=== PATIENT | female | born 2000 | race African-American/Black ===

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

== ENCOUNTER 2023-10-19 01:45 | Emergency (ER) | payer MEDICAID ==
[~2023-10-19] VITALS: Ht 162.6 cm; Wt 113.4 kg
[~2023-10-19 01:45] MED LIST changes: -METF-1022 PO; +METF-1253 PO
[2023-10-19 02:15] VITALS: BP 155/81; PULSE 99; RESP 18; TEMP 97.8; O2SAT 99
[2023-10-19 02:58] LABS: BASOPHILS % (AUTO) 0.6 % (0.0-2.0); EOSINOPHILS # (AUTO) 0.1 K/uL (0-0.4); HEMATOCRIT 26.2 % (36-48); HEMOGLOBIN 8.8 g/dL (12.0-16.0); LYMPHOCYTES # (AUTO) 2.2 K/uL (2.5-16.5); LYMPHOCYTES % (AUTO) 33.1 % (20.5-51.1); MEAN CORPUSCULAR HEMOGLOBIN 25 pg (27-31); MEAN CORPUSCULAR HGB CONC 34 g/dL (33-37); MONOCYTES # (AUTO) 0.9 K/uL (0.8-1.0); MONOCYTES % (AUTO) 13.1 % (1.7-9.3); NEUTROPHILS # (AUTO) 3.4 K/uL (1.8-7.7); NEUTROPHILS % (AUTO) 52.2 % (42.2-75.2); PLATELET COUNT (AUTO) 378 K/uL (140-450); RED BLOOD CELL COUNT(AUTO) 3.45 MIL/uL (4.20-5.40); RED CELL DISTRIBUTION WIDTH 13.4 % (11.6-13.7); WHITE BLOOD COUNT (AUTO) 6.6 K/uL (4.8-10.8)
[2023-10-19 03:01] LABS: APPEARANCE,URINE CLEAR (CLEAR); BILIRUBIN,URINE NEGATIVE (NEGATIVE); BLOOD, URINE 2+ (NEGATIVE); COLOR,URINE YELLOW (YELLOW); LEUKOCYTE ESTERASE ,URINE NEGATIVE (NEGATIVE); NITRITE, URINE NEGATIVE (NEGATIVE); PROTEIN,URINE 3+ (NEGATIVE); UGLUCOSE NEGATIVE (NEGATIVE); UROBILINOGEN,URINE 0.2 EU/dL (0.2 - 1)
[2023-10-19 03:05] LABS: BACTERIA,URINE 10-30 (MOD) /HPF (None Seen); MUCUS,URINE 1+ /LPF (None Seen); SQUAMOUS EPITHELIAL CELL,UR 4-10 (MOD) /LPF (0-3 (FEW)); WBC,URINE 0-5 /HPF (0-5)
[2023-10-19 03:18] LABS: AMPHETAMINE, URINE NEGATIVE ng/ml (NEG <=1000); BARBITURATE, URINE NEGATIVE ng/ml (NEG <=200); BENZODIAZEPINE, URINE NEGATIVE ng/mL (NEG <=200); CANNABINOID, URINE POSITIVE ng/mL (NEG <=50); COCAINE, URINE NEGATIVE ng/mL (NEG <=300); OPIATE, URINE NEGATIVE ng/mL (NEG <=2000); PHENCYCLIDINE SCREEN,URINE NEGATIVE ng/mL (NEG <=25)
[2023-10-19] MEDS: diphenhydrAMINE 50 MG/ML VIAL IVP ONE (03:19)
[2023-10-19] MEDS: METOCLOPRAMIDE 10 MG/2 ML INJ VIAL IVP ONE (03:19)
[2023-10-19 03:28] LABS: ALBUMIN 2.3 g/dL (3.4-5.0); ANION GAP 9.7 (8-16); CALCIUM 8.9 mg/dL (8.5-10.1); POTASSIUM 4.7 mmol/L (3.5-5.1); TOTAL BILIRUBIN 0.1 mg/dL (0.0-1.0); TOTAL PROTEIN, SERUM 7.8 g/dL (6.4-8.2)
[2023-10-19] MEDS: NACL 0.9% 1,000 ML IV ONE (03:41)
[2023-10-19] MEDS: SUMAtriptan succinate 6 MG/0.5 ML VIAL SUBQ ONE (03:41)
[2023-10-19] MEDS: KETOROLAC 30 MG/ML VIAL IVP ONE (03:52)
[2023-10-19] MEDS: DEXAMETHASONE 10 MG/ML VIAL IVP ONE (03:53)
[2023-10-19] MEDS ORDERED: ACET-9496 PO (04:52)
[2023-10-19] MEDS ORDERED: METO-485 PO (04:52)
[2023-10-19] MEDS ORDERED: IMI50 PO (04:52)
[2023-10-19] MEDS ORDERED: NAPR-54 PO (04:52)
[2023-10-19] MEDS ORDERED: LISI5TAB18 PO (04:53)
[2023-10-19 05:57] VITALS: BP 183/77; PULSE 98; RESP 16; O2SAT 100
== END 2023-10-19 05:57 | disposition home or self-care (01) ==
LOC: MED 01:45
DX: G43.109 Migraine with aura, not intractable, without status migrainosus (principal); I10 Essential (primary) hypertension; E11.9 Type 2 diabetes mellitus without complications; D53.9 Nutritional anemia, unspecified; E78.00 Pure hypercholesterolemia, unspecified; Z86.39 Personal history of other endocrine, nutritional and metabolic disease; Z98.890 Other specified postprocedural states; Z79.899 Other long term (current) drug therapy
CPT/HCPCS: 36415; 80053; 80305; 81001; 81025; 85025; 87086; 96361; 96372; 96374; 96375; 99284; J1100; J1200; J1885; J2765; J3030; J7030

== ENCOUNTER 2023-10-23 15:46 | Emergency (ER) | payer MEDICAID ==
[~2023-10-23] VITALS: Ht 162.6 cm; Wt 113.4 kg
[2023-10-23 15:46] VITALS: BP 150/88; PULSE 102; RESP 20; TEMP 98.1; O2SAT 98
[~2023-10-23 15:46] MED LIST changes: +ACET-9496 PO; +IMI50 PO; +LISI5TAB18 PO; +METO-485 PO; +NAPR-54 PO
[2023-10-24] MEDS ORDERED: INSU100S10 SC (18:05)
[2023-10-24] MEDS ORDERED: LISI5TAB18 PO (18:05)
== END 2023-10-23 16:03 | disposition left against medical advice (07) ==
LOC: MED 15:46
DX: R51.9 Headache, unspecified (principal); H57.10 Ocular pain, unspecified eye; Z53.21 Procedure and treatment not carried out due to patient leaving prior to being seen by health care provider
CPT/HCPCS: 99281

== ENCOUNTER 2023-10-24 14:25 | Emergency (ER) | payer MEDICAID ==
[~2023-10-24] VITALS: Ht 162.6 cm; Wt 113.4 kg
[2023-10-24 14:37] VITALS: BP 115/85; PULSE 109; RESP 18; TEMP 97.1; O2SAT 99
[2023-10-24] MEDS ORDERED: TOMOMETER 1 DEV DEV MC ONE (16:08)
[2023-10-24] MEDS: NACL 0.9% 1,000 ML IV ONE (16:39)
[2023-10-24 16:42] LABS: BASOPHILS % (AUTO) 0.5 % (0.0-2.0); EOSINOPHILS # (AUTO) 0.1 K/uL (0-0.4); EOSINOPHILS % (AUTO) 0.9 % (0.0-4.0); HEMOGLOBIN 10.1 g/dL (12.0-16.0); LYMPHOCYTES # (AUTO) 3.3 K/uL (2.5-16.5); LYMPHOCYTES % (AUTO) 32.4 % (20.5-51.1); MEAN CORPUSCULAR HEMOGLOBIN 25 pg (27-31); MEAN CORPUSCULAR HGB CONC 34 g/dL (33-37); MEAN CORPUSCULAR VOLUME 74.4 fL (80-94); MONOCYTES # (AUTO) 0.8 K/uL (0.8-1.0); MONOCYTES % (AUTO) 7.8 % (1.7-9.3); NEUTROPHILS # (AUTO) 5.9 K/uL (1.8-7.7); NEUTROPHILS % (AUTO) 58.4 % (42.2-75.2); PLATELET COUNT (AUTO) 490 K/uL (140-450); RED BLOOD CELL COUNT(AUTO) 4.04 MIL/uL (4.20-5.40); RED CELL DISTRIBUTION WIDTH 13.9 % (11.6-13.7); WHITE BLOOD COUNT (AUTO) 10.1 K/uL (4.8-10.8)
[2023-10-24 17:03] LABS: ANION GAP 11.4 (8-16); CALCIUM 9.3 mg/dL (8.5-10.1); CARBON DIOXIDE 26.3 mmol/L (21-32); CREATININE 1.1 mg/dL (0.6-1.3); POTASSIUM 4.7 mmol/L (3.5-5.1)
[2023-10-24] MEDS ORDERED: diphenhydrAMINE 50 MG/ML VIAL ONE (17:03)
[2023-10-24] MEDS ORDERED: KETOROLAC 30 MG/ML VIAL ONE (17:03)
[2023-10-24] MEDS ORDERED: METOCLOPRAMIDE 10 MG/2 ML INJ VIAL ONE (17:04)
[2023-10-24] MEDS: diphenhydrAMINE 50 MG/ML VIAL IVP ONE (17:11)
[2023-10-24] MEDS: KETOROLAC 30 MG/ML VIAL IVP ONE (17:12)
[2023-10-24] MEDS: METOCLOPRAMIDE 10 MG/2 ML INJ VIAL IVP ONE (17:13)
[2023-10-24] MEDS ORDERED: LISI5TAB18 PO (18:05)
[2023-10-24] MEDS ORDERED: INSU100S10 SC (18:05)
== END 2023-10-24 19:54 | disposition home or self-care (01) ==
LOC: MED 14:25
DX: H35.61 Retinal hemorrhage, right eye (principal); R51.9 Headache, unspecified; E03.9 Hypothyroidism, unspecified; E11.9 Type 2 diabetes mellitus without complications; I11.9 Hypertensive heart disease without heart failure; Z79.4 Long term (current) use of insulin; Z79.899 Other long term (current) drug therapy
CPT/HCPCS: 36415; 80048; 85025; 96361; 96374; 96375; 99284; J1200; J1885; J2765; J7030

== ENCOUNTER 2023-11-01 17:09 | Emergency (ER) | payer MEDICAID ==
[~2023-11-01] VITALS: Ht 165.1 cm; Wt 113.4 kg
[~2023-11-01 17:09] MED LIST changes: +INSU100S10 SC
[2023-11-01 17:18] VITALS: BP 139/95; PULSE 105; RESP 20; TEMP 98.1; O2SAT 100
[2023-11-01 17:36] VITALS: BP 135/88; PULSE 98; RESP 20; TEMP 98.1; O2SAT 100
[2023-11-01] MEDS: TETRACAINE HCL/PF 0.5% OPTH 4 ML BTL OP ONE (17:36)
[2023-11-01] MEDS: ONDANSETRON 4 MG ODT PO ONE (18:12)
[2023-11-01] MEDS: FLUORESCEIN OPTH STRIP 1 MG OP ONE (18:13)
[2023-11-01] MEDS: HYDROcodone/APAP 10/325 MG 1 TAB TAB PO ONE (18:13)
[2023-11-01] MEDS ORDERED: ACET-8905 PO (19:09)
== END 2023-11-01 19:19 | disposition home or self-care (01) ==
LOC: MED 17:09
DX: H57.11 Ocular pain, right eye (principal); E11.9 Type 2 diabetes mellitus without complications; I10 Essential (primary) hypertension; Z86.39 Personal history of other endocrine, nutritional and metabolic disease; E78.5 Hyperlipidemia, unspecified; Z79.899 Other long term (current) drug therapy; Z79.4 Long term (current) use of insulin
CPT/HCPCS: 99284; Q0162

== ENCOUNTER 2024-02-20 11:49 | Emergency (ER) | payer MEDICAID, OTHER ==
[~2024-02-20] VITALS: Ht 162.6 cm; Wt 114.0 kg
[~2024-02-20 11:49] MED LIST changes: +ACET-8905 PO; +NAPR-337 PO; -NAPR-54 PO
[2024-02-20 11:56] VITALS: BP 158/99; PULSE 104; RESP 18; TEMP 98.1; O2SAT 99
[2024-02-20] MEDS: ONDANSETRON 4 MG/2 ML VIAL IVP ONE (12:53)
[2024-02-20] MEDS: FAMOTIDINE 20 MG/2 ML VIAL IVP ONE (12:54)
[2024-02-20] MEDS: NACL 0.9% 1,000 ML IV SCH (12:56)
[2024-02-20 12:57] LABS: BASOPHILS % (AUTO) 0.2 % (0.0-2.0); EOSINOPHILS % (AUTO) 0.2 % (0.0-4.0); HEMATOCRIT 32.4 % (36-48); HEMOGLOBIN 10.6 g/dL (12.0-16.0); LYMPHOCYTES # (AUTO) 2.4 K/uL (2.5-16.5); MEAN CORPUSCULAR HEMOGLOBIN 26 pg (27-31); MEAN CORPUSCULAR HGB CONC 33 g/dL (33-37); MEAN CORPUSCULAR VOLUME 79.1 fL (80-94); MONOCYTES # (AUTO) 1.1 K/uL (0.8-1.0); MONOCYTES % (AUTO) 8.6 % (1.7-9.3); NEUTROPHILS # (AUTO) 9.7 K/uL (1.8-7.7); PLATELET COUNT (AUTO) 390 K/uL (140-450); RED CELL DISTRIBUTION WIDTH 17.3 % (11.6-13.7); WHITE BLOOD COUNT (AUTO) 13.4 K/uL (4.8-10.8)
[2024-02-20 13:00] VITALS: O2SAT 99
[2024-02-20 13:05] LABS: CALCIUM 9.2 mg/dL (8.5-10.1); CARBON DIOXIDE 25.5 mmol/L (21-32); CREATININE 1.5 mg/dL (0.6-1.3); POTASSIUM 4.5 mmol/L (3.5-5.1)
[2024-02-20 13:12] LABS: ALBUMIN 2.9 g/dL (3.4-5.0); BILIRUBIN,DIRECT 0.1 mg/dL (0.0-0.3); TOTAL BILIRUBIN 0.2 mg/dL (0.0-1.0); TOTAL PROTEIN, SERUM 7.6 g/dL (6.4-8.2)
[2024-02-20 14:12] LABS: APPEARANCE,URINE SL CLOUDY (CLEAR); BILIRUBIN,URINE NEGATIVE (NEGATIVE); BLOOD, URINE 1+ (NEGATIVE); COLOR,URINE YELLOW (YELLOW); LEUKOCYTE ESTERASE ,URINE TRACE (NEGATIVE); NITRITE, URINE NEGATIVE (NEGATIVE); PROTEIN,URINE 3+ (NEGATIVE); UGLUCOSE NEGATIVE (NEGATIVE); UROBILINOGEN,URINE 0.2 EU/dL (0.2 - 1)
[2024-02-20] MEDS ORDERED: METO-485 PO (14:12)
[2024-02-20 14:28] LABS: BACTERIA,URINE 10-30 (MOD) /HPF (None Seen); MUCUS,URINE 1+ /LPF (None Seen); SQUAMOUS EPITHELIAL CELL,UR 4-10 (MOD) /LPF (0-3 (FEW)); WBC,URINE 0-5 /HPF (0-5)
== END 2024-02-20 14:20 | disposition home or self-care (01) ==
LOC: MED 11:49
DX: K29.70 Gastritis, unspecified, without bleeding (principal); E11.9 Type 2 diabetes mellitus without complications; I10 Essential (primary) hypertension; E78.5 Hyperlipidemia, unspecified; F12.90 Cannabis use, unspecified, uncomplicated; Z98.890 Other specified postprocedural states; Z79.84 Long term (current) use of oral hypoglycemic drugs; Z79.1 Long term (current) use of non-steroidal anti-inflammatories (NSAID); Z79.4 Long term (current) use of insulin; Z79.899 Other long term (current) drug therapy
CPT/HCPCS: 36415; 76705; 80048; 80076; 81001; 81025; 82948; 83690; 85025; 87086; 96374; 96375; 99285; J2405; J3490; J7030; Q0092

== ENCOUNTER 2024-02-27 10:05 | Emergency (ER) | payer OTHER ==
[~2024-02-27] VITALS: Ht 165.1 cm; Wt 113.4 kg
[2024-02-27 10:10] VITALS: BP 165/96; PULSE 111; RESP 18; TEMP 97; O2SAT 100
[2024-02-27 11:01] VITALS: BP 128/92; PULSE 89; RESP 18; TEMP 97; O2SAT 100
[2024-02-27] MEDS: NACL 0.9% 1,000 ML IV ONE (11:11)
[2024-02-27] MEDS ORDERED: DICYCLOMINE HCL LIQUID 10 MG/5 ML UDC ONE (11:13)
[2024-02-27] MEDS ORDERED: ALUMINUM HYD/MAG/SIMETHICONE 30 ML UDC ONE (11:13)
[2024-02-27 11:15] LABS: BASOPHILS % (AUTO) 0.4 % (0.0-2.0); EOSINOPHILS % (AUTO) 0.3 % (0.0-4.0); HEMATOCRIT 30.9 % (36-48); LYMPHOCYTES # (AUTO) 2.6 K/uL (2.5-16.5); LYMPHOCYTES % (AUTO) 23.2 % (20.5-51.1); MEAN CORPUSCULAR HEMOGLOBIN 26 pg (27-31); MEAN CORPUSCULAR HGB CONC 32 g/dL (33-37); MEAN CORPUSCULAR VOLUME 79.6 fL (80-94); MONOCYTES # (AUTO) 0.9 K/uL (0.8-1.0); MONOCYTES % (AUTO) 7.8 % (1.7-9.3); NEUTROPHILS # (AUTO) 7.7 K/uL (1.8-7.7); NEUTROPHILS % (AUTO) 68.3 % (42.2-75.2); PLATELET COUNT (AUTO) 404 K/uL (140-450); RED BLOOD CELL COUNT(AUTO) 3.88 MIL/uL (4.20-5.40); RED CELL DISTRIBUTION WIDTH 16.1 % (11.6-13.7); WHITE BLOOD COUNT (AUTO) 11.3 K/uL (4.8-10.8)
[2024-02-27] MEDS: METOCLOPRAMIDE 10 MG/2 ML INJ VIAL IVP ONE (11:17)
[2024-02-27] MEDS: HALOPERIDOL IM 5 MG/ML VIAL IM ONE (11:21)
[2024-02-27] MEDS: DICYCLOMINE HCL LIQUID 20 MG, ALUMINUM HYD/MAG/SIMETHICONE 30 ML, LIDOCAINE VISCOUS 2% ... PO ONE (11:21)
[2024-02-27 12:02] LABS: ANION GAP 11.3 (8-16); CALCIUM 9.3 mg/dL (8.5-10.1); CARBON DIOXIDE 26.4 mmol/L (21-32); CREATININE 1.1 mg/dL (0.6-1.3); POTASSIUM 4.7 mmol/L (3.5-5.1)
[2024-02-27 12:08] LABS: ALBUMIN 2.8 g/dL (3.4-5.0); BILIRUBIN,DIRECT 0.1 mg/dL (0.0-0.3); TOTAL BILIRUBIN 0.3 mg/dL (0.0-1.0); TOTAL PROTEIN, SERUM 7.4 g/dL (6.4-8.2)
[2024-02-27] MEDS ORDERED: METO10TA11 PO (12:35)
== END 2024-02-27 12:51 | disposition home or self-care (01) ==
LOC: MED 10:05
DX: R11.10 Vomiting, unspecified (principal); R10.9 Unspecified abdominal pain; E11.9 Type 2 diabetes mellitus without complications; E78.5 Hyperlipidemia, unspecified; I10 Essential (primary) hypertension; F12.90 Cannabis use, unspecified, uncomplicated; Z98.890 Other specified postprocedural states; Z79.1 Long term (current) use of non-steroidal anti-inflammatories (NSAID); Z79.4 Long term (current) use of insulin; Z79.84 Long term (current) use of oral hypoglycemic drugs; Z79.899 Other long term (current) drug therapy; Z91.040 Latex allergy status
CPT/HCPCS: 36415; 80048; 80076; 81025; 82948; 83690; 84703; 85025; 96361; 96372; 96374; 99284; J1630; J2765; J7030

== ENCOUNTER 2024-02-28 16:32 | Emergency (ER) | payer OTHER ==
[~2024-02-28] VITALS: Ht 162.6 cm; Wt 113.4 kg
[~2024-02-28 16:32] MED LIST changes: +METO10TA11 PO
[2024-02-28 16:37] VITALS: BP 166/102; PULSE 104; RESP 19; TEMP 97.9; O2SAT 100
[2024-02-28 17:00] VITALS: O2SAT 100
[2024-02-28] MEDS: diphenhydrAMINE 50 MG/ML VIAL IM ONE (17:49)
[2024-02-28 18:06] LABS: BASOPHILS # (AUTO) 0.1 K/uL (0.00-0.22); BASOPHILS % (AUTO) 0.7 % (0.0-2.0); EOSINOPHILS % (AUTO) 0.2 % (0.0-4.0); HEMATOCRIT 31.3 % (36-48); HEMOGLOBIN 10.2 g/dL (12.0-16.0); LYMPHOCYTES # (AUTO) 2.9 K/uL (2.5-16.5); LYMPHOCYTES % (AUTO) 28.3 % (20.5-51.1); MEAN CORPUSCULAR HEMOGLOBIN 26 pg (27-31); MEAN CORPUSCULAR HGB CONC 33 g/dL (33-37); MONOCYTES # (AUTO) 0.9 K/uL (0.8-1.0); NEUTROPHILS # (AUTO) 6.3 K/uL (1.8-7.7); NEUTROPHILS % (AUTO) 61.8 % (42.2-75.2); PLATELET COUNT (AUTO) 400 K/uL (140-450); RED BLOOD CELL COUNT(AUTO) 3.96 MIL/uL (4.20-5.40); WHITE BLOOD COUNT (AUTO) 10.1 K/uL (4.8-10.8)
[2024-02-28 18:16] LABS: ANION GAP 12.7 (8-16); CALCIUM 9.7 mg/dL (8.5-10.1); CARBON DIOXIDE 25.6 mmol/L (21-32); CREATININE 1.1 mg/dL (0.6-1.3); POTASSIUM 4.3 mmol/L (3.5-5.1)
== END 2024-02-28 19:26 | disposition home or self-care (01) ==
LOC: MED 16:32
DX: R42 Dizziness and giddiness (principal); G25.71 Drug induced akathisia; E10.9 Type 1 diabetes mellitus without complications; I10 Essential (primary) hypertension; K21.9 Gastro-esophageal reflux disease without esophagitis; Z86.39 Personal history of other endocrine, nutritional and metabolic disease; Z79.899 Other long term (current) drug therapy; Z88.8 Allergy status to other drugs, medicaments and biological substances
CPT/HCPCS: 36415; 80048; 81025; 82948; 84703; 85025; 93005; 96372; 99284; J1200

== ENCOUNTER 2024-03-01 10:25 | Emergency (ER) | payer OTHER ==
[~2024-03-01] VITALS: Ht 167.6 cm; Wt 111.1 kg
[2024-03-01 10:43] VITALS: BP 151/79; PULSE 99; RESP 19; TEMP 97.3; O2SAT 98
[2024-03-01 12:04] LABS: BASOPHILS % (AUTO) 0.3 % (0.0-2.0); EOSINOPHILS % (AUTO) 0.5 % (0.0-4.0); HEMATOCRIT 31.3 % (36-48); HEMOGLOBIN 10.4 g/dL (12.0-16.0); LYMPHOCYTES # (AUTO) 2.2 K/uL (2.5-16.5); LYMPHOCYTES % (AUTO) 26.7 % (20.5-51.1); MEAN CORPUSCULAR HEMOGLOBIN 26 pg (27-31); MEAN CORPUSCULAR HGB CONC 33 g/dL (33-37); MEAN CORPUSCULAR VOLUME 78.6 fL (80-94); MONOCYTES % (AUTO) 11.5 % (1.7-9.3); NEUTROPHILS # (AUTO) 5.1 K/uL (1.8-7.7); PLATELET COUNT (AUTO) 396 K/uL (140-450); RED BLOOD CELL COUNT(AUTO) 3.98 MIL/uL (4.20-5.40); RED CELL DISTRIBUTION WIDTH 15.7 % (11.6-13.7); WHITE BLOOD COUNT (AUTO) 8.4 K/uL (4.8-10.8)
[2024-03-01 12:17] LABS: CALCIUM 9.7 mg/dL (8.5-10.1); CARBON DIOXIDE 26.6 mmol/L (21-32); CREATININE 1.2 mg/dL (0.6-1.3); POTASSIUM 5.6 mmol/L (3.5-5.1)
[2024-03-01] MEDS: FAMOTIDINE 20 MG/2 ML VIAL IVP ONE (12:17)
[2024-03-01] MEDS: METOCLOPRAMIDE 10 MG/2 ML INJ VIAL IVP ONE (12:18)
[2024-03-01] MEDS: diphenhydrAMINE 50 MG/ML VIAL IVP ONE (12:20)
[2024-03-01 12:21] LABS: ALBUMIN 2.8 g/dL (3.4-5.0); BILIRUBIN,DIRECT 0.1 mg/dL (0.0-0.3); TOTAL BILIRUBIN 0.2 mg/dL (0.0-1.0); TOTAL PROTEIN, SERUM 7.5 g/dL (6.4-8.2)
[2024-03-01] MEDS: NACL 0.9% 1,000 ML IV ONE (13:21)
[2024-03-01 13:26] VITALS: BP 177/75; PULSE 90; RESP 20; TEMP 98.3; O2SAT 98
[2024-03-01 14:21] LABS: ANION GAP 12.4 (8-16); CALCIUM 9.6 mg/dL (8.5-10.1); CARBON DIOXIDE 25.3 mmol/L (21-32); CREATININE 1.2 mg/dL (0.6-1.3); POTASSIUM 5.7 mmol/L (3.5-5.1)
== END 2024-03-01 14:24 | disposition left against medical advice (07) ==
LOC: MED 10:25
DX: E11.65 Type 2 diabetes mellitus with hyperglycemia (principal); E87.5 Hyperkalemia; K21.9 Gastro-esophageal reflux disease without esophagitis; I10 Essential (primary) hypertension; Z79.1 Long term (current) use of non-steroidal anti-inflammatories (NSAID); Z79.84 Long term (current) use of oral hypoglycemic drugs; Z79.4 Long term (current) use of insulin; Z79.899 Other long term (current) drug therapy; Z91.040 Latex allergy status
CPT/HCPCS: 36415; 80048; 80076; 81025; 83690; 84703; 85025; 96361; 96374; 96375; 99284; J1200; J2765; J3490; J7030

== ENCOUNTER 2024-04-15 01:25 | Emergency (ER) | payer OTHER ==
[~2024-04-15] VITALS: Ht 165.1 cm; Wt 113.4 kg
[2024-04-15 01:32] VITALS: BP 182/85; PULSE 92; RESP 20; TEMP 98.1; O2SAT 97
[2024-04-15 01:54] VITALS: TEMP 98.1
[2024-04-15 01:56] LABS: BASOPHILS # (AUTO) 0.3 K/uL (0.00-0.22); BASOPHILS % (AUTO) 3.5 % (0.0-2.0); EOSINOPHILS # (AUTO) 0.4 K/uL (0-0.4); EOSINOPHILS % (AUTO) 4.1 % (0.0-4.0); HEMATOCRIT 28.1 % (36-48); HEMOGLOBIN 9.6 g/dL (12.0-16.0); LYMPHOCYTES # (AUTO) 2.6 K/uL (2.5-16.5); LYMPHOCYTES % (AUTO) 28.2 % (20.5-51.1); MEAN CORPUSCULAR HEMOGLOBIN 27 pg (27-31); MEAN CORPUSCULAR HGB CONC 34 g/dL (33-37); MONOCYTES # (AUTO) 0.7 K/uL (0.8-1.0); MONOCYTES % (AUTO) 7.6 % (1.7-9.3); NEUTROPHILS # (AUTO) 5.3 K/uL (1.8-7.7); NEUTROPHILS % (AUTO) 56.6 % (42.2-75.2); PLATELET COUNT (AUTO) 406 K/uL (140-450); RED BLOOD CELL COUNT(AUTO) 3.52 MIL/uL (4.20-5.40); RED CELL DISTRIBUTION WIDTH 13.3 % (11.6-13.7); WHITE BLOOD COUNT (AUTO) 9.3 K/uL (4.8-10.8)
[2024-04-15] MEDS: ONDANSETRON 4 MG/2 ML VIAL IVP ONE (01:58)
[2024-04-15] MEDS: NACL 0.9% 1,000 ML IV SCH (01:59)
[2024-04-15 02:04] LABS: APPEARANCE,URINE CLEAR (CLEAR); BILIRUBIN,URINE NEGATIVE (NEGATIVE); BLOOD, URINE 2+ (NEGATIVE); COLOR,URINE YELLOW (YELLOW); LEUKOCYTE ESTERASE ,URINE NEGATIVE (NEGATIVE); NITRITE, URINE NEGATIVE (NEGATIVE); PROTEIN,URINE 2+ (NEGATIVE); UGLUCOSE 3+ (NEGATIVE); UROBILINOGEN,URINE 0.2 EU/dL (0.2 - 1)
[2024-04-15 02:08] LABS: ANION GAP 10.8 (8-16); CALCIUM 8.9 mg/dL (8.5-10.1); CREATININE 1.2 mg/dL (0.6-1.3); POTASSIUM 4.8 mmol/L (3.5-5.1)
[2024-04-15 02:08] LABS: BACTERIA,URINE 10-30 (MOD) /HPF (None Seen); MUCUS,URINE 1+ /LPF (None Seen); RBC,URINE 0-5 /HPF (0-5); SQUAMOUS EPITHELIAL CELL,UR 0-3 (FEW) /LPF (0-3 (FEW)); WBC,URINE 0-5 /HPF (0-5)
[2024-04-15 02:10] VITALS: O2SAT 99
[2024-04-15 02:12] LABS: ALBUMIN 2.6 g/dL (3.4-5.0); TOTAL BILIRUBIN 0.1 mg/dL (0.0-1.0); TOTAL PROTEIN, SERUM 7.1 g/dL (6.4-8.2)
[2024-04-15] MEDS ORDERED: ALUMINUM HYD/MAG/SIMETHICONE 30 ML UDC ONE (02:33)
[2024-04-15] MEDS ORDERED: DICYCLOMINE HCL LIQUID 10 MG/5 ML UDC ONE (02:33)
[2024-04-15] MEDS: DICYCLOMINE HCL LIQUID 20 MG, ALUMINUM HYD/MAG/SIMETHICONE 30 ML, LIDOCAINE VISCOUS 2% ... PO ONE (02:39)
[2024-04-15] MEDS ORDERED: INSULIN REGULAR, HUMAN 100 UNIT/ML VIAL SUBQ ONE (02:45)
[2024-04-15] MEDS: INSULIN REGULAR, HUMAN 100 UNIT/ML VIAL SUBQ ONE (03:01)
[2024-04-15 03:42] VITALS: BP 155/61; PULSE 84; RESP 14; O2SAT 98
== END 2024-04-15 03:42 | disposition home or self-care (01) ==
LOC: MED 01:25
DX: R11.2 Nausea with vomiting, unspecified (principal); E78.00 Pure hypercholesterolemia, unspecified; E11.9 Type 2 diabetes mellitus without complications; I10 Essential (primary) hypertension; K21.9 Gastro-esophageal reflux disease without esophagitis; Z79.4 Long term (current) use of insulin; Z79.84 Long term (current) use of oral hypoglycemic drugs; Z79.899 Other long term (current) drug therapy; Z91.040 Latex allergy status
CPT/HCPCS: 36415; 80048; 80076; 81001; 81025; 82948; 83690; 85025; 87086; 96361; 96372; 96374; 99284; J1815; J2405; J7030

== ENCOUNTER 2024-05-30 20:25 | Emergency (ER) | payer OTHER ==
[~2024-05-30] VITALS: Ht 162.6 cm; Wt 108.9 kg
[2024-05-30 20:29] VITALS: BP 196/77; PULSE 106; RESP 22; TEMP 97.6; O2SAT 100
[2024-05-30 20:49] LABS: BASOPHILS # (AUTO) 0.1 K/uL (0.00-0.22); EOSINOPHILS # (AUTO) 0.1 K/uL (0-0.4); EOSINOPHILS % (AUTO) 0.9 % (0.0-4.0); HEMATOCRIT 29.2 % (36-48); HEMOGLOBIN 9.7 g/dL (12.0-16.0); LYMPHOCYTES # (AUTO) 3.3 K/uL (2.5-16.5); LYMPHOCYTES % (AUTO) 37.4 % (20.5-51.1); MEAN CORPUSCULAR HEMOGLOBIN 26 pg (27-31); MEAN CORPUSCULAR HGB CONC 33 g/dL (33-37); MONOCYTES # (AUTO) 0.8 K/uL (0.8-1.0); MONOCYTES % (AUTO) 9.3 % (1.7-9.3); NEUTROPHILS # (AUTO) 4.6 K/uL (1.8-7.7); NEUTROPHILS % (AUTO) 51.4 % (42.2-75.2); PLATELET COUNT (AUTO) 356 K/uL (140-450); RED BLOOD CELL COUNT(AUTO) 3.79 MIL/uL (4.20-5.40); RED CELL DISTRIBUTION WIDTH 13.2 % (11.6-13.7); WHITE BLOOD COUNT (AUTO) 8.9 K/uL (4.8-10.8)
[2024-05-30 21:06] LABS: ANION GAP 12.1 (8-16); CALCIUM 8.9 mg/dL (8.5-10.1); CREATININE 1.2 mg/dL (0.6-1.3); POTASSIUM 5.1 mmol/L (3.5-5.1)
== END 2024-05-30 21:44 | disposition home or self-care (01) ==
LOC: MED 20:25
DX: R00.2 Palpitations (principal); R07.9 Chest pain, unspecified; E11.9 Type 2 diabetes mellitus without complications; K21.9 Gastro-esophageal reflux disease without esophagitis; I10 Essential (primary) hypertension; Z86.39 Personal history of other endocrine, nutritional and metabolic disease; Z98.890 Other specified postprocedural states; Z79.899 Other long term (current) drug therapy; Z79.4 Long term (current) use of insulin; Z88.8 Allergy status to other drugs, medicaments and biological substances
CPT/HCPCS: 36415; 80048; 85025; 93005; 99284